=== PATIENT | female | born 1985 | race Caucasian/White ===

== ENCOUNTER 2023-10-06 17:45 | Inpatient (IN) | payer OTHER ==
[2023-10-06] MEDS ORDERED: lidocaine 1% 20 ML MDV ID PRN (18:38)
[2023-10-06] MEDS ORDERED: miSOPROStoL 200 MCG TABLET BC PRN (18:38)
[2023-10-06] MEDS ORDERED: CARBOPROST TROMETHAMINE 250 MCG/ML AMP IM PRN (18:38)
[2023-10-06] MEDS ORDERED: TRANEXAMIC ACID IN NACL 1,000 MG/100 ML BAG IV PRN (18:38)
[2023-10-06] MEDS ORDERED: hydrALAZINE INJ 20 MG/ML VIAL IVP PRN ×2 (18:38)
[2023-10-06] MEDS ORDERED: OXYTOCIN/SODIUM CHLORIDE 500 ML IV PRN (18:38)
[2023-10-06] MEDS ORDERED: LABETALOL 20 MG/4 ML SYRINGE IVP PRN ×3 (18:38)
[2023-10-06] MEDS ORDERED: METHYLERGONOVINE 0.2 MG/ML VIAL IM PRN (18:38)
[2023-10-06] MEDS ORDERED: miSOPROStoL 200 MCG TABLET PR PRN (18:38)
[2023-10-06] MEDS ORDERED: OXYTOCIN 10 UNIT/ML VIAL IM PRN (18:38)
[2023-10-06] MEDS ORDERED: LACTATED RINGERS 1,000 ML IV PRN (18:38)
[2023-10-06] MEDS ORDERED: NIFEdipine 10 MG CAPSULE PO PRN (18:38)
[2023-10-06] MEDS ORDERED: TERBUTALINE 1 MG/ML VIAL SUBQ PRN (18:38)
--- NOTE | 2023-10-06 18:48 | HISTORY & PHYSICAL EXAMINATION ---
Admit History - : 2 Parity: 1 Care: positive: Other ([facility]) Risk/History: positive: Other (Previous child with congenital hypothyroidism) Complications This : positive: Gestational diabetes Smoking Status: Never smoker - Mother's Labs Mother's Blood Type: positive: Unknown Mother's RH: positive: Unknown GBS: positive: Group B Step Negative Rubella Status: positive: Immune - Other Maternal History Other Maternal History: HPI: Patient is a. 37-year-old -0-0-1 at 39 weeks gestation LMP consistent with 10-week ultrasound she has good movement. Denies loss of fluid. No PAT/BV or RUQP. No vaginal bleeding. Denies nausea and vomiting. Denies urinary urgency or dysuria. She was scheduled for induction of labor secondary to A1 GDM at [facility], but due to unforeseen circumstances, needed to deliver at a different hospital. We graciously except this patient from [facility]. All other symptoms reviewed and were negative except per HPI. Course History of child with congenital hypothyroidism Two-vessel cord A1 GDM: Growth ultrasound at 33 weeks showed EFW in the 41st percentile. 2070 g. Oral HSV: On prophylactic acyclovir History of herniated lumbar disc. Initial H/H: 12.0/35%. Plt: 367 Rubella: Immune Varicella: Immune HBsAg: Nonreactive Hep C: Negative RPR/AB-EIA: Nonreactive HIV: Negative HSV Screen: Oral HSV, on prophylaxis Genetic testing: Negative Anatomy Scan: Two-vessel cord. Normal anatomy. Placenta posterior 50 gm OGCT: 158 GBS: Negative PMH A1 GDM HSV 1 Two-vessel cord Advanced maternal age Obesity with prepregnancy BMI of 30. Previous child with congenital hypothyroidism Herniated lumbar disc History of LEEP History of drug abuse. PSH Carpal tunnel surgery Risk factor repair History of LEEP Was needed traction OB History -0-0-1 1. 07/05/2006: 39 weeks, female, , [place], polyhydramnios, epidural, congenital hypothyroidism SH Denies tobacco, alcohol or drugs. Former smoker, quit 17 years ago did vape until she learned she was . Significant other and roommates vape. Did drink, sometimes heavily prior to . Does have a remote use of opioid use disorder, but no use for 19 years Family History Grandmother: Breast cancer Mother: Family history Grandmother: Brain tumor Father: Heart disease Grandfather: Prostate cancer Allergies No known drug allergies Medications Renal vitamins Acyclovir Physical exam: General: Alert, oriented, no acute distress Head: Normal cephalic atraumatic Eyes: PERRLA, extraocular motions intact. Respiratory: Normal rate of respiration. No accessory muscle use, normal respiratory effort. Cardiovascular: Regular rate and rhythm Abdomen: Gravid, nontender, nondistended Extremities: Normal range of motion Neuro: Oriented x3. Normal movements Psych: Appropriate mood and affect. Normal judgment and insight SVE: Fingertip, 85%, -1 in clinic yesterday FHT: 125 beats per baseline, moderate bili, accelerations present, no decelerations. Flippin: Quiescent Plan 37-year-old -0-0-1 at 39 weeks 0 days gestation by LMP consistent with 10- week ultrasound admitted for cervical ripening 1. Cervical ripening -Cervix unfavorable. Will begin cervical ripening with buccal misoprostol, 25 mcg every 4 hours -Plan for admission labs -After cervical ripening, will consider admission if cervix is favorable. Anticipate amniotomy 2. 39 weeks gestation 3. A1 GDM -Every 4 hour glucose checks 4. History of drug abuse -Will start with urine drug screen. No use for 19 years. 5. Advanced maternal age 6. Obesity class I with prepregnancy BMI of 30 7. Oral HSV -On prophylaxis 8. History of child with congenital hypothyroidism Meds/Allgy - Home Medications Home Medications: Ambulatory Orders Medication Instructions Recorded Confirmed Pnv No.95/Ferrous Fum/Folic AC 1 each PO 10/06/23 [ Tablet] - Allergies Allergies/Adverse Reactions: Allergies Allergy/AdvReac Type Severity Reaction Status Date / Time No Known Drug Allergies Allergy Verified 09/28/23 11:28 Plan for Labor - Plan For Labor I expect patient to be DC'd or transferred within 96 hours.: Yes
[2023-10-06 19:00] LABS: ALBUMIN 3.3 g/dL (3.2-5.5); ALBUMIN/GLOBULIN RATIO 1.1 (1.0-2.2); BILIRUBIN,TOTAL 0.3 mg/dL (0.2-1.0); CALCIUM 9.1 mg/dL (8.5-10.3); CREATININE 0.5 mg/dL (0.6-1.3); POTASSIUM 3.4 mmol/L (3.5-4.5); TOTAL PROTEIN 6.3 g/dL (6.4-8.9)
[2023-10-06 19:05] LABS: BASOPHILS % (AUTO) 0.3 %; EOSINOPHILS # (AUTO) 0.1 10^3/uL (0.0-0.7); EOSINOPHILS % (AUTO) 0.7 %; HCT - HEMATOCRIT 37.3 % (37.0-47.0); HGB - HEMOGLOBIN 12.6 g/dL (12.0-16.0); LYMPHOCYTES # (AUTO) 2.4 10^3/uL (1.5-3.5); LYMPHOCYTES % (AUTO) 20.8 %; MEAN CORPUSCULAR HGB CONC 33.8 g/dL (32.0-36.0); MEAN CORPUSCULAR VOLUME 91.6 fL (81.0-99.0); MEAN PLATELET VOLUME 12.2 fL (7.9-10.8); MONOCYTES # (AUTO) 0.7 10^3/uL (0.0-1.0); MONOCYTES % (AUTO) 6.3 %; NEUTROPHILS # (AUTO) 8.2 10^3/uL (1.5-6.6); NEUTROPHILS % (AUTO) 70.8 %; PLT - PLATELET COUNT 218 10^3/uL (130-450); RED BLOOD COUNT 4.07 10^6/uL (4.20-5.40); RED CELL DISTRIBUTION WIDTH 13.2 % (12.0-15.0); WHITE BLOOD COUNT 11.7 x10^3/uL (4.8-10.8)
[2023-10-06] MEDS: miSOPROStoL 100 MCG TABLET BC SCH (20:15)
[2023-10-06] MEDS: ACYCLOVIR 200 MG CAPSULE PO SCH (23:33)
[2023-10-07] MEDS: SODIUM CHLORIDE FLUSH 0.9% 10 ML SYRINGE IVP PRN (00:27)
[2023-10-07] MEDS: SODIUM CHLORIDE FLUSH 0.9% 10 ML SYRINGE IVP SCH (12:45)
--- NOTE | 2023-10-07 15:44 | PROVIDER PROGRESS NOTE ---
Labor Progress Note - Uterine Monitoring : q 5-7 min Contraction Intensity: positive: Mild to moderate Uterine Resting Tone: positive: Soft - Monitoring Monitor Mode: positive: External ultrasound Heart Rate Variability: positive: Moderate (6-25 bmp) Accelerations: positive: Present, 15x15 Decelerations: positive: None Strip Review: positive: Category I - Vaginal Exam Dilation (in cm): 0 Effacement (%): 80 Station: -3 Cervical Position: Posterior - Labor Progress Note Labor Progress Note/Additional Text: s/p miso x 3. marcela alot but not in labor, no cervical change. I can not get my finger thru her cervix. continue miso for now. maybe cervical scarring from her LEEP.
--- NOTE | 2023-10-07 17:45 | PROVIDER PROGRESS NOTE ---
Labor Progress Note - Uterine Monitoring Contraction Frequency (min/apart): q2.5 to 6 min Contraction Intensity: positive: Mild to moderate Uterine Resting Tone: positive: Soft - Monitoring Monitor Mode: positive: External ultrasound Heart Rate Variability: positive: Moderate (6-25 bmp) Accelerations: positive: Present, 15x15 Decelerations: positive: None Strip Review: positive: Category I - Vaginal Exam Dilation (in cm): 1 Effacement (%): 80 Cervical Position: Midposition (gettin more uncomfortable with the contractions. maybe wanting epidural soon. I still can not get my finger fully thru her cer vix. tried. a balloon or pitocin woudl be good. both discussed. will start with oxytocin for now. I realy think her contractions are too painful and frequent for miso.)
[2023-10-07] MEDS: OXYTOCIN/SODIUM CHLORIDE 500 ML IV SCH (21:30)
[2023-10-07] MEDS: LACTATED RINGERS 1,000 ML IV SCH (21:30)
[2023-10-08] MEDS: fentaNYL 100 MCG/2 ML VIAL IVP PRN (09:07)
--- NOTE | 2023-10-08 11:54 | PHARMACY PROGRESS NOTE ---
- Best Possible Medication History Admit Date and Time: 10/07/23 1828 Processed by: Pharmacy Medication History completed: Yes Patient Interview: Pt unable to participate Secondary Source(s): Insurance records As the person ultimately responsible for medication therapy, providers are able to order a medication from an existing home medication list in [facility] via the "Reconcile Routine" prior to Confirmation of that medication by academic support center director. Such practice is discouraged except when the physician, in their clinical judgment, deems that a medical need exists for a medication without regard to previous use.
--- NOTE | 2023-10-08 20:17 | PROVIDER PROGRESS NOTE ---
Labor Progress Note - Uterine Monitoring Uterine Monitoring Mode: positive: External toco Contraction Frequency (min/apart): still irregular q 2-5 Contraction Intensity: positive: Mild to moderate Uterine Resting Tone: positive: Soft - Monitoring Monitor Mode: positive: External ultrasound Heart Rate Variability: positive: Moderate (6-25 bmp) Accelerations: positive: Present, 15x15 Decelerations: positive: None Strip Review: positive: Category I - Vaginal Exam Dilation (in cm): 1 Effacement (%): 80 Station: -3 Cervical Position: Anterior - Labor Progress Note Labor Progress Note/Additional Text: cervical catheter placed and filled 60 in uterine balloon, 40 in vaginal balloon. fentanyl 50 mcg given prior to insertion to help her tolerate. pitocin at 10. I held catheter in place with inflation. continue pitocin and catheter today. recheck around 9 pm.
--- NOTE | 2023-10-08 20:45 | ANESTHESIA ---
Pre-Anesthesia VS, & Labs - Diagnosis Active labor - Procedure vaginal delivery Vital Signs: Temp Pulse Resp BP Pulse Ox O2 Flow Rate 36.8 C 88 16 134/86 H 10/06/23 18:00 10/06/23 18:00 10/06/23 18:00 10/06/23 18:00 Height: 5 ft 2 in Weight (kg): 92.079 kg Body Mass Index: 37.1 BMI Classification: Obese - NPO Other (clear liquids during labor) - Is Patient ?: Yes - Lab Results Current Lab Results: Laboratory Tests 10/08/23 17:41: POC Whole Bld Glucose 81 10/08/23 11:09: POC Whole Bld Glucose 88 10/08/23 06:45: POC Whole Bld Glucose 123 H 10/08/23 02:57: POC Whole Bld Glucose 93 10/07/23 22:39: POC Whole Bld Glucose 113 H 10/07/23 18:23: POC Whole Bld Glucose 124 H 10/07/23 13:56: POC Whole Bld Glucose 113 H 10/07/23 10:15: POC Whole Bld Glucose 86 10/07/23 06:24: POC Whole Bld Glucose 104 H 10/07/23 02:18: POC Whole Bld Glucose 139 H 10/06/23 19:15: Blood Type Recheck O POSITIVE 10/06/23 18:15: WBC 11.7 H, RBC 4.07 L, Hgb 12.6, Hct 37.3, MCV 91.6, MCH 31.0, MCHC 33.8, RDW 13.2, Plt Count 218, MPV 12.2 H, Neut # (Auto) 8.2 H, Lymph # (Auto) 2.4, [place] # (Auto) 0.7, Eos # (Auto) 0.1, Baso # (Auto) 0.0, Absolute Nucleated RBC 0.00, Nucleated RBC % 0.0 10/06/23 18:15: Blood Type O POSITIVE, Antibody Screen NEGATIVE 10/06/23 18:15: Sodium 132 L, Potassium 3.4 L, Chloride 103, Carbon Dioxide 21, Anion Gap 8.0, BUN 10, Creatinine 0.5 L, Estimated GFR (MDRD) 140, Glucose 128 H , Calcium 9.1, Total Bilirubin 0.3, AST 16, ALT 13, Alkaline Phosphatase 130 H, Total Protein 6.3 L, Albumin 3.3, Globulin 3.0, Albumin/Globulin Ratio 1.1 Lab results reviewed: Yes Fish Bones: 10/06/23 18:15 10/06/23 18:15 Home Medications and Allergies Home Medications: Ambulatory Orders Pnv No.95/Ferrous Fum/Folic AC [ Tablet] 1 each PO DAILY 10/06/23 Acyclovir 800 mg PO BID 10/08/23 Active Medications Acyclovir (Acyclovir 200 Mg Capsule) 400 mg PO TID [facility] Last Admin: 10/08/23 15:35 Dose: 400 mg Carboprost Tromethamine (Carboprost Tromethamine 250 Mcg/Ml Amp) 250 mcg IM .ONCE PRN PRN Reason: Hemorrhage Fentanyl (Fentanyl 100 Mcg/2 Ml Vial) 50 mcg IVP Q1H PRN PRN Reason: Severe Pain (score 7-10) Last Admin: 10/08/23 09:07 Dose: 50 mcg Hydralazine HCl (Hydralazine Inj 20 Mg/Ml Vial) 10 mg IVP .ONCE PRN; Protocol PRN Reason: SBP> or= 160 OR DBP> or= 110 Hydralazine HCl (Hydralazine Inj 20 Mg/Ml Vial) 5 - 10 mg IVP Q20M PRN; Protocol PRN Reason: SBP> or= 160 OR DBP> or= 110 Oxytocin/Sodium Chloride (Pitocin/Sodium Chloride) 500 mls @ 999 mls/hr IV PRN PRN; Protocol PRN Reason: POST- HEMORR PREVENTION Tranexamic Acid (Tranexamic 1,000 Mg/100ml-Nacl) 1,000 mg in 100 mls @ 600 mls/hr IV Q30M PRN PRN Reason: EBL >1200mL and within 3hr Lactated Ringer's (Lr) 1,000 mls @ 125 mls/hr IV .Q8H [facility] Last Infusion: 10/08/23 08:49 Dose: 50 mls/hr Lactated Ringer's (Lr) 1,000 mls @ 999 mls/hr IV PRN PRN PRN Reason: PER PHYSICIAN ORDER Oxytocin/Sodium Chloride (Pitocin/Sodium Chloride) 500 mls @ 1 mls/hr IV TITR [facility]; Protocol Last Titration: 10/08/23 08:14 Dose: 10 milliunit/min, 10 mls/hr Labetalol HCl (Labetalol 20 Mg/4 Ml Syringe) 20 mg IVP .ONCE PRN; Protocol PRN Reason: SBP> or= 160 OR DBP> or= 110 Labetalol HCl (Labetalol 20 Mg/4 Ml Syringe) 20 - 80 mg IVP Q10M PRN; Protocol PRN Reason: SBP> or= 160 OR DBP> or= 110 Labetalol HCl (Labetalol 20 Mg/4 Ml Syringe) 20 - 40 mg IVP Q10M PRN; Protocol PRN Reason: SBP> or= 160 OR DBP> or= 110 Lidocaine HCl (Lidocaine 1% 20 Ml Mdv) 20 ml ID .ONCE PRN PRN Reason: PERINEAL REPAIR Stop: 10/09/23 18:38 Methylergonovine Maleate (Methylergonovine 0.2 Mg/Ml Vial) 0.2 mg IM .ONCE PRN PRN Reason: Hemorrhage Misoprostol (Misoprostol 200 Mcg Tablet) 600 mcg BC .ONCE PRN PRN Reason: Hemorrhage Misoprostol (Misoprostol 200 Mcg Tablet) 800 mcg [place] .ONCE PRN PRN Reason: Hemorrhage Misoprostol (Misoprostol 100 Mcg Tablet) 25 mcg BC Q4H [facility] Last Admin: 10/07/23 12:45 Dose: 25 mcg Nifedipine (Nifedipine 10 Mg Capsule) 10 - 20 mg PO Q20M PRN; Protocol PRN Reason: SBP> or= 160 OR DBP> or= 110 Oxytocin (Oxytocin 10 Unit/Ml Vial) 10 unit IM .ONCE PRN PRN Reason: Step One if no IV access. Multivit/Folic Acid/Iron ( Vitamin Tablet) 1 tab PO DAILYWM [facility] Sodium Chloride (Sodium Chloride Flush 0.9% 10 Ml Syringe) 10 ml IVP Q8H [facility] Last Admin: 10/07/23 12:45 Dose: 10 ml Sodium Chloride (Sodium Chloride Flush 0.9% 10 Ml Syringe) 10 ml IVP PRN PRN PRN Reason: NEEDED PER PROVIDER ORDERS Last Admin: 10/07/23 06:45 Dose: 10 ml Terbutaline Sulfate (Terbutaline 1 Mg/Ml Vial) 0.25 mg SUBQ .ONCE PRN PRN Reason: Tachystole Pnv No.95/Ferrous Fum/Folic AC [ Tablet] 1 each PO DAILY 10/06/23 Acyclovir 800 mg PO BID 10/08/23 Allergies/Adverse Reactions: Allergies Allergy/AdvReac Type Severity Reaction Status Date / Time No Known Drug Allergies Allergy Verified 09/28/23 11:28 Anes History & Medical History - Anesthetic History Anesthesia Complications: reports: No previous complications - Medical History Cardiovascular: reports: None Pulmonary: reports: None Gastrointestinal: reports: None Urinary: reports: None Neuro: reports: None Musculoskeletal: reports: None Endocrine/Autoimmune: reports: Other (Gestational diabetes) Blood Disorders: reports: None Skin: reports: None Smoking Status: Former smoker Psychosocial: reports: No issues indicated History of Cancer?: No - Surgical History Gynecologic: reports: LEEP (Cervical surgery) Orthopedic: reports: Carpal Tunnel surgery - Obstetrical History : 2 Parity: 1 Events: reports: Other (Previous child with congenital hypothyroidism) Complications: reports: Gestational diabetes Exam General: Alert, Oriented x3, Cooperative, No acute distress Dental: WNL Mouth Openin Fingerbreadth Neck Mobility: Normal Mallampati classification: II Thyromental Distance: 4-6 cm Mental/Cognitive Status: Alert/Oriented X3, Normal for patient Plan Anesthesia Type: Epidural Consent for Procedure(s) Verified and Reviewed: Yes Code Status: Attempt Resuscitation ASA classification: 2-Mild systemic disease Is this case an emergency?: No
--- NOTE | 2023-10-08 21:53 | PROVIDER PROGRESS NOTE ---
Labor Progress Note - Uterine Monitoring Uterine Monitoring Mode: positive: External toco Contraction Frequency (min/apart): q4-6 : pitocin at 10 Contraction Intensity: positive: Mild to moderate Uterine Resting Tone: positive: Soft - Monitoring Monitor Mode: positive: External ultrasound Heart Rate Variability: positive: Moderate (6-25 bmp) Accelerations: positive: Present, 15x15 Decelerations: positive: None - Vaginal Exam Dilation (in cm): 4 Effacement (%): 50 Station: Ballotable Cervical Position: Anterior - Labor Progress Note Labor Progress Note/Additional Text: woke up from a sleep and was shaking and shivering. no fever. cervix checked and did not feel fever in her vagina. catheter removed as 12 hours. 4/50/high. seems a band of scar tissue that I broke open getting this out. will have her sit up on the ball for a bit. will go up on pitocin. checked back wiht her after 30 min and feels totally back to normal. shaking episode lasted about 5 minutes. baby is category 1. looks great.
[2023-10-09] MEDS ORDERED: PHENYLEPHRINE HCL 0.5 MG/5 ML AMPULE ONE ×2 (10:24→11:16)
[2023-10-09] MEDS ORDERED: OXYTOCIN 10 UNIT/ML VIAL ONE (10:24)
[2023-10-09] MEDS ORDERED: MORPHINE PF 5 MG/10 ML VIAL ONE (10:25)
[2023-10-09] MEDS ORDERED: fentaNYL 100 MCG/2 ML VIAL ONE (10:25)
[2023-10-09] MEDS ORDERED: ceFAZolin (2G) 2 GM in SODIUM CHLORIDE 0.9% MINIBAG 100 ML IV ONE (10:26)
[2023-10-09] MEDS ORDERED: ACETAMINOPHEN 500 MG TABLET PO ONE (10:26)
[2023-10-09] MEDS ORDERED: CITRIC ACID/SODIUM CITRATE 15 ML UDC PO ONE (10:26)
[2023-10-09] MEDS ORDERED: miSOPROStoL 200 MCG TABLET ONE (10:27)
[2023-10-09] MEDS ORDERED: CARBOPROST TROMETHAMINE 250 MCG/ML AMP IM ONE (10:28)
[2023-10-09] MEDS ORDERED: METHYLERGONOVINE 0.2 MG/ML VIAL ONE (10:28)
[2023-10-09] MEDS ORDERED: SODIUM CHLORIDE 0.9% 10 ML VIAL IVP ONE (10:28)
[2023-10-09] MEDS ORDERED: ceFAZolin 2 GM VIAL ONE (10:30)
--- NOTE | 2023-10-09 10:32 | HISTORY & PHYSICAL EXAMINATION ---
HPI - Admitted From Admitted from: OB - History Obtained From History obtained from: Patient Exam limitations: No limitations - History of Present Illness HPI Comment/Other: Patient for labor induction 37 yo with GDM diet controlled and 2 vessel cord. 39w 2d now. DILLAN 10/13/23 by 10 week US = LMP. s/p miso x 5, pitocin overnight. pitocin with balloon x 12 hrs and then pitocin up to 20. 3 cm and not in labor. seems like a large baby, maybe 10 pounds with a lot of fluid. options discussed. going home is a possiblity. baby has always looked great. a bit of a worry that she is 3 cm and feels to have a lot of fluid and worry about cord prolapse. another option, restart miso or pitocin. Or proceed with c section. After much discussion, and looking at her belly in standing up, I recommend c section as I think this baby is quite large. She and Cullen agree. procedure, risks discussed. She has signed the consent form. Team is called in. Will proceed when everyone is ready. PMH/PSH - Past Medical History Cardiovascular: positive: None Respiratory: positive: None Neuro: positive: None Endocrine/Autoimmune: positive: Other (Gestational diabetes) GI: positive: None : positive: None Musculoskeletal: positive: None Derm: positive: None - Past Surgical History Ortho: positive: Carpal Tunnel surgery /CARBONATOR: positive: LEEP (Cervical surgery) Social & Family Hx - Social History Does the pt smoke?: No Smoking Status: Former smoker Does the pt drink ETOH?: Yes Does the pt have substance abuse?: No Meds/Allgy - Home Medications Home Medications: Ambulatory Orders Medication Instructions Recorded Confirmed Pnv No.95/Ferrous Fum/Folic AC 1 each PO DAILY 10/06/23 10/08/23 [ Tablet] Acyclovir 800 mg PO BID 10/08/23 10/08/23 - Allergies Allergies/Adverse Reactions: Allergies Allergy/AdvReac Type Severity Reaction Status Date / Time No Known Drug Allergies Allergy Verified 09/28/23 11:28 Exam - Physical Exam Comments/Other: cervix 3/70/-3, still not well engaged. abdomen large c/w large amount of fluid and large baby, efw 10 pounds. Results - Lab Results Fish Bones: 10/06/23 18:15 10/06/23 18:15 Other Lab Results: Lab Results x24hrs 10/09/23 10/09/23 10/08/23 Range/Units 06:16 02:34 21:43 POC Whole Bld Glucose 87 122 H 101 H (70 - 100) mg/dL 10/08/23 10/08/23 Range/Units 17:41 11:09 POC Whole Bld Glucose 81 88 (70 - 100) mg/dL Impression/Plan - Problem List Problem List: term
[2023-10-09] MEDS ORDERED: OXYTOCIN/SODIUM CHLORIDE 500 ML IV ONE (10:34)
[2023-10-09] MEDS ORDERED: MORPHINE PF 5 MG/10 ML VIAL IT ONE (10:59)
[2023-10-09] MEDS ORDERED: fentaNYL 100 MCG/2 ML VIAL IT ONE (10:59)
[2023-10-09] MEDS ORDERED: LACTATED RINGERS 1,000 ML IV SCH ×3 (11:00→13:00)
[2023-10-09] MEDS: LACTATED RINGERS 1,000 ML IV ONE ×2 (11:50→12:06)
[2023-10-09] MEDS ORDERED: KETOROLAC 30 MG/ML VIAL ONE (11:51)
[2023-10-09] MEDS ORDERED: ONDANSETRON 4 MG/2 ML VIAL ONE (11:51)
[2023-10-09] MEDS ORDERED: hydrALAZINE INJ 20 MG/ML VIAL IVP PRN ×2 (11:56)
[2023-10-09] MEDS ORDERED: LABETALOL 20 MG/4 ML SYRINGE IVP PRN ×3 (11:56)
[2023-10-09] MEDS ORDERED: NIFEdipine 10 MG CAPSULE PO PRN (11:56)
[2023-10-09] MEDS ORDERED: OXYTOCIN/SODIUM CHLORIDE 500 ML IV PRN (11:56)
[2023-10-09] MEDS ORDERED: NALOXONE 0.4 MG/ML VIAL IVP PRN ×3 (11:56→12:34)
[2023-10-09] MEDS ORDERED: diphenhydrAMINE 25 MG CAPSULE PO PRN (11:57)
[2023-10-09] MEDS ORDERED: ONDANSETRON 4 MG/2 ML VIAL IVP PRN ×2 (12:19→12:34)
[2023-10-09] MEDS ORDERED: HYDROmorphone 0.5 MG/0.5 ML SYRINGE IVP PRN (12:19)
[2023-10-09] MEDS ORDERED: ATROPINE ABBOJECT 1 MG/10 ML SYRINGE IVP PRN (12:19)
[2023-10-09] MEDS ORDERED: MORPHINE 2 MG/ML CARPUJECT IVP PRN (12:19)
[2023-10-09] MEDS ORDERED: fentaNYL 100 MCG/2 ML VIAL IVP PRN (12:19)
[2023-10-09] MEDS ORDERED: NALBUPHINE 10 MG/ML AMP IVP PRN (12:34)
[2023-10-09] MEDS ORDERED: diphenhydrAMINE INJ 50 MG/ML VIAL IVP PRN (12:34)
--- NOTE | 2023-10-09 12:39 | ANESTHESIA POST OP EVALUATION ---
Anesthesia Post Eval - Post Anesthesia Eval Vitals: Last Vital Signs Temp 36.1 C L 10/09/23 12:30 Pulse 67 10/09/23 12:30 Resp 19 10/09/23 12:30 BP 98/63 10/09/23 12:30 Pulse Ox 100 10/09/23 12:30 O2 Flow Rate CV Function Including HR & BP: Stable Pain Control: Satisfactory Nausea & Vomiting: Negative Mental Status: Baseline Respiratory Status: Airway Patent Hydration Status: Satisfactory Anesthesia Complications: None
--- NOTE | 2023-10-09 13:50 | OPERATIVE REPORT ---
Operative Report - General Admit Date: 10/07/23 Procedure Date: 10/09/23 Planned Procedure: primary low transverse c section Pre-Op Diagnosis: failed induction, 2 vessel cord, AMA, LGA baby Procedure Performed: primary low transverse c section Post Op Diagnosis: failed induction, 2 vessel cord with true know - Procedure Note Primary Surgeon: Riri Holbrook MD Secondary Surgeon: KIMMY Emerson Anesthesia Provider: Nohemi Arenas CRNA Anesthesia Technique: Spinal Pathology: none IV Fluids (mL): 800 Estimated Blood Loss (mL): 100 Urine Output (mL): 300 Drain/Tube Type: Other (linares catheter) Indications: 37 yo wiht at 39w2d presented for induction 2 days ago. in spite of misoprostol, pitocin, catheter in cervix, and more pitocin, baby's head was not low enough to break water and she just did not go into labor. Baby felt to be large but it was hard to tell. Seemed there was a lot of fluid. r ecommended c section and she agreed. consents signed. Findings: Live male infant named Augustin. Apgars 8/9. Weight 7lb14 oz. Baby was not engaged. uterus, tubes and ovaries appeared normal. Complications: none - Other Other Information/Narrative: patient was brought to OR and prepped and draped in normal fashion, including vaginal prep. 2 grams of Ancef given. SCDs on. Time out done. anesthesia tested and was adequate. Knife used to make pfanensteil incision and carry down to fascia. The fascia was transected bilaterally. Edges grasped with Kochers and elevated inferiorly then superiorly and the rectus muscles were discected off. Split in midline and peritoneum entered sharply. Baron retractor placed and rolled down. Low Transverse uterine incsion made with the knife. Uterine incsion extended. Baby's head was easily guided out of incision and rest of baby was delivered. Shown to parents. cord was clamped and cut at 1 minute. Baby handed off to Dr. Jesse houston. Placenta delivered with gentle tractions. uterus cleared of clots. Grasped with [place] clamps. Closed with running locked ) Monocryl suture. A second horizontal imbricating laayter was placed. Muscle layers were examined for bleeders. A mattress type stitch was placed with 0 Vicryl to hold facia together. Fascia was then closed with running 0 Vicryl. Subq was closed with 3-0 Vicryl and skin was closed with 4-0 MOnocryl in subcuticalar fashion. bandage placed. uterus expressed and pateint was brought to [facility] room 5 for recovery and the rest of her stay.
[2023-10-09] MEDS: KETOROLAC 30 MG/ML VIAL IVP SCH (18:58)
[2023-10-09] MEDS: oxyCODONE 5 MG TABLET PO PRN (18:59)
[2023-10-09] MEDS: ACETAMINOPHEN 500 MG TABLET PO SCH (18:59)
[2023-10-09] MEDS: DOCUSATE SODIUM 100 MG CAPSULE PO SCH (21:42)
[2023-10-09] MEDS: ENOXAPARIN 40 MG/0.4 ML SYRINGE SUBQ SCH (23:37)
[2023-10-10] MEDS ORDERED: KETOROLAC 30 MG/ML VIAL ONE (01:06)
[2023-10-10] MEDS: IBUPROFEN 600 MG TABLET PO SCH (07:10)
--- NOTE | 2023-10-10 10:41 | PROVIDER PROGRESS NOTE ---
Subjective - General Admit Date: 10/07/23 Procedure Date: 10/09/23 Post Op Days: 1 Procedure Performed: c section - Review of Systems Wound/Incisions: positive: Other (bandage still on. will remove later today) Drain Type: n/a General: positive: No symptoms - Other Other Information/Narrative: POD 1 after c section for failed induction. doing great. bonding well with baby. partner is very supportive. breast feeding. will get up and shower today. discharge tomorrow. Objective - Patient Data Vital Signs: Vital Signs x48h Temp Pulse Resp BP Pulse Ox 10/10/23 03:50 97.9 F 78 16 105/64 96 Weight: Weight 10/08/23 10/09/23 10/10/23 23:59 23:59 23:59 Weight (kg) 92.079 kg Intake & Output: Intake and Output Totals x24h 10/08/23 10/09/23 10/10/23 23:59 23:59 23:59 Intake Total 2221.767 1272.733 300 Output Total 1825 1100 Balance 2221.767 -552.267 -800 - Lab Results Lab Results: 10/06/23 18:15 10/06/23 18:15 - Current Medications Current Medications: Current Medications Generic Name Dose Route Start Last Admin Trade Name Luz PRN Reason Stop Dose Admin Acetaminophen 1,000 mg 10/09/23 12:00 10/10/23 03:06 Acetaminophen 500 Mg Tablet PO 1,000 mg Q8H CYNTHIA Administration Acyclovir 400 mg 10/06/23 22:00 10/10/23 08:08 Acyclovir 200 Mg Capsule PO 400 mg TID CYNTHIA Administration Docusate Sodium 200 mg 10/09/23 21:00 10/10/23 08:08 Docusate Sodium 100 Mg Capsule PO 200 mg BID CYNTHIA Administration Enoxaparin Sodium 40 mg 10/09/23 23:30 10/10/23 08:08 Enoxaparin 40 Mg/0.4 Ml Syringe SUBQ 40 mg DAILY CYNTHIA Administration Ibuprofen 600 mg 10/10/23 07:00 10/10/23 07:10 Ibuprofen 600 Mg Tablet PO 600 mg Q6HR CYNTHIA Administration Oxycodone HCl 5 - 10 mg 10/09/23 11:56 10/09/23 18:59 Oxycodone 5 Mg Tablet PO 5 mg Q4HR PRN Administration Severe Pain 6 -10 Sodium Chloride 10 ml 10/06/23 19:00 10/10/23 01:09 Sodium Chloride Flush 0.9% 10 Ml Syringe IVP 10 ml Q8H CYNTHIA Administration
[2023-10-10] MEDS: HYDROCORTISONE 1% CREAM 28 GM TUBE TOP SCH (23:04)
--- NOTE | 2023-10-11 08:27 | PROVIDER PROGRESS NOTE ---
Subjective - General Admit Date: 10/07/23 Procedure Date: 10/09/23 Post Op Days: 2 Procedure Performed: c section - Review of Systems Wound/Incisions: positive: Other (Incision clean, dry, intact) Drain Type: n/a General: positive: No symptoms - Other Other Information/Narrative: Subjective Patient reports she is doing well. Lochia appropriate. Denies heavy bleeding. Ambulating. Pelvic and abdominal pain well-controlled. Tolerating oral intake. Diet: Regular. Voiding without difficulty. Passing flatus. Denies BM. Patient is bonding with baby in room Breast feeding going well. Denies feeling lightheaded, dizzy or excessively fatigued. Patient tired from hourly feeds. Objective General: Alert, oriented, no apparent distress. Cardiovascular: Regular rate. Regular rhythm. Lungs: No increased work of breathing. Abdomen: Uterus firm. Below umbilicus. No guarding or rebound. Extremities: No pain on palpation. No cords palpated. Distal pulses intact. Incision: Clean, dry, and intact. Assessment and Plan day 2. -Routine care -Anticipate discharge tomorrow HIstory of PPD -Discussed sertraline. Will consider today. -Encouraged to take a nap while considering supplementing. -Will keep a close eye on mood. Can consider discharge later today if doing better, but feeding/modd concerns. Objective - Patient Data Vital Signs: Vital Signs x48h Temp Pulse Resp BP Pulse Ox 10/11/23 04:00 97.7 F 77 20 133/80 H 96 Intake & Output: Intake and Output Totals x24h 10/09/23 10/10/23 10/11/23 23:59 23:59 23:59 Intake Total 1272.733 300 Output Total 1825 1100 Balance -552.267 -800 - Lab Results Lab Results: 10/06/23 18:15 10/06/23 18:15 - Current Medications Current Medications: Current Medications Generic Name Dose Route Start Last Admin Trade Name Lionq PRN Reason Stop Dose Admin Acetaminophen 1,000 mg 10/09/23 12:00 10/11/23 03:57 Acetaminophen 500 Mg Tablet PO 1,000 mg Q8H CYNTHIA Administration Acyclovir 400 mg 10/06/23 22:00 10/10/23 23:04 Acyclovir 200 Mg Capsule PO 400 mg TID CYNTHIA Administration Docusate Sodium 200 mg 10/09/23 21:00 10/10/23 21:12 Docusate Sodium 100 Mg Capsule PO 200 mg BID CYNTHIA Administration Enoxaparin Sodium 40 mg 10/09/23 23:30 10/10/23 08:08 Enoxaparin 40 Mg/0.4 Ml Syringe SUBQ 40 mg DAILY CYNTHIA Administration Hydrocortisone 1 applic 10/10/23 22:00 10/10/23 23:04 Hydrocortisone 1% Cream 28 Gm Tube TOP 1 oz BID CYNTHIA Administration Ibuprofen 600 mg 10/10/23 07:00 10/11/23 03:12 Ibuprofen 600 Mg Tablet PO 600 mg Q6HR CYNTHIA Administration Oxycodone HCl 5 - 10 mg 10/09/23 11:56 10/09/23 18:59 Oxycodone 5 Mg Tablet PO 5 mg Q4HR PRN Administration Severe Pain 6 -10 Sodium Chloride 10 ml 10/06/23 19:00 10/10/23 01:09 Sodium Chloride Flush 0.9% 10 Ml Syringe IVP 10 ml Q8H CYNTHIA Administration
[2023-10-11] MEDS: PRENATAL VITAMIN TABLET PO SCH (11:52)
--- NOTE | 2023-10-11 15:53 | Discharge Plan ---
Discharge Plan Problem Reviewed?: Yes Disposition: Home, Self Care Condition: Good Diet: Regular Shower Restrictions: No Driving Restrictions: Yes (Until no longer having significant postop pain) Instruction Topics: Depression , C Section Dc No Smoking: If you smoke, Please STOP! Call for help. Follow-up with: Vladimir Muniz MD [Provider Admit Priv/Credential] -
--- NOTE | 2023-10-11 15:55 | DISCHARGE SUMMARY ---
"Discharge Summary Admit Date: 10/06/23 Discharge Date: 10/11/23 Discharging Provider: Vladimir Muniz MD Code Status: Attempt Resuscitation Condition at Discharge: Good Discharge Disposition: 01 Home, Self Care - DIAGNOSES Admission Diagnoses: 39 weeks gestation A1 gestational diabetes managed with diet and exercise Induction of labor Discharge Diagnoses with Status of Each Condition: 39 weeks gestation A1 gestational diabetes managed with diet and exercise Failed induction of labor Delivery of live inman Status post primary low-transverse section - HPI History of Present Illness: Patient doing better after nap, but still anxious. Had a long discussion about managing , swaddling, depression, and giving oneself space. Offered patient another night stay, but she felt she would be better when she got home in a normal environment. Counseled on depression, calling for any concerns. Should follow-up with her primary OB provider or [facility] women's care. - CONSULTS | PROCEDURES Procedures: Primary low-transverse section - HOSPITAL COURSE Hospital Course: Patient was admitted at 39 weeks gestation for induction of labor for A1 GDM. She had a long induction with misoprostol, cervical ripening balloon, oxytocin, and all were unsuccessful in achieving active labor. After several days of this process, she underwent a primary low-transverse section. Surgery was uncomplicated. course was relatively unremarkable, however on postpa rtum day 2, she was very tearful and struggled with lack of sleep. We discussed coping mechanisms, ways to get more sleep, but patient desired to go home. She was uncertain if she wanted to start antianxiety medication/SSRI, and agreed that I can send one to the pharmacy for her to flower buncher or picker if she felt this necessary. Offered close follow-up as she is increased risk of depression and will follow-up later this week with an office visit. - ALLERGIES Allergies/Adverse Reactions: Allergies Allergy/AdvReac Type Severity Reaction Status Date / Time No Known Drug Allergies Allergy Verified 09/28/23 11:28 - MEDICATIONS Home Medications: Ambulatory Orders Medication Instructions Recorded Confirmed Pnv No.95/Ferrous Fum/Folic AC 1 each PO DAILY 10/06/23 10/08/23 [ Tablet] Acyclovir 800 mg PO BID 10/08/23 10/08/23 Ibuprofen [Motrin] 600 mg PO Q6H PRN #30 tab 10/11/23 Sertraline [Zoloft] 100 mg PO DAILY #30 tablet 10/11/23 - LABS Result Diagrams: 10/06/23 18:15 10/06/23 18:15 - FOLLOW UP Follow Up: Within 1 week with [facility] women's care or primary OB provider. - TIME SPENT Time Spent in Discharge (Minutes): 45"
[2023-10-11 18:38] VITALS: BP 122/74; O2SAT 98
--- NOTE | 2023-10-11 19:19 | Labor Flowsheet ---
Labor Flowsheet Datetime Report Generated by CPN: 10/11/2023 19:19 Datetime: 10/10/2023 00:45 Membranes Ruptured Date/Time: 10/09/2023 11:19 Membranes Rupture Method: Artificial Amniotic Fluid Color: Clear Amniotic Fluid Amount: Large Amniotic Fluid Odor: Normal Datetime: 10/09/2023 09:02 UTERINE ACTIVITY Monitor Mode: External Frequency (min): 10-12 Quality: Strong Duration (sec): 160-180 Pattern: Normal: <= 5 Contractions in 10 Minutes Resting Tone (Palpate): Relaxed ASSESSMENT A Monitor Mode: Telemetry FHR Baseline Rate : 120 Variability: Moderate 6-25 bpm Accelerations: 15X15 Decelerations: None Category: Category I Datetime: 10/09/2023 08:45 COMMUNICATION Communication: Provider at Bedside Datetime: 10/09/2023 08:41 VITAL SIGNS NBP Sys/Mable/Mean (mmHg): 113 : 72 : 82 Pulse: 77 LaborFlag: Labor Datetime: 10/09/2023 08:02 Contraction Comments: unable to trace d/t patient position Datetime: 10/09/2023 07:48 I/O Interventions: Up to BR Datetime: 10/09/2023 07:24 Communication Comments: received report fro RN Luisa Sandro Datetime: 10/09/2023 06:22 Patient Care Comments: left lateral with peanut ball Datetime: 10/09/2023 03:20 MEDICATIONS Pitocin (milliunits): Discontinued Datetime: 10/09/2023 03:15 VAGINAL EXAM Dilatation (cm): 4.0 Effacement (%): 50 Station: -3 Exam by: Lilliana Jo Provider Notified (Name): Datetime: 10/08/2023 23:30 Pitocin Checklist: At Least 1 Acceleration of 15 bpm x 15 Seconds in 30 Minutes or Adequate Variabi lity; No More than 1 Late Deceleration Occurred in Past 30 Minutes; No More than 2 Variable Decelerat ions > 60 Seconds in Duration and decreasing >60 bpm in 30 minutes; No More than 5 Uterine Contractio ns in 10 Minutes for any 20 Minute Interval; Uterus Palpates Soft between Contractions Datetime: 10/08/2023 23:00 Monitor Interventions for UA: Parcoal Adjusted Datetime: 10/08/2023 18:31 Patient Position/Activity: Right Lateral Datetime: 10/08/2023 18:30 Comments: Unable to adequately assess due to positioning. Datetime: 10/08/2023 15:58 Comfort Measures: Breathing/Relaxation Datetime: 10/08/2023 13:00 Monitor Interventions for FHR: Ultrasound Adjusted Datetime: 10/08/2023 12:30 FHR Baseline Changes: No Baseline Change Datetime: 10/08/2023 09:30 Actions for Decelerations: Side to Side; Provider Notified Datetime: 10/08/2023 09:24 Cervical Ripening Agents: Torres Balloon; Cytotec @ Medication Comments: [id number] Datetime: 10/08/2023 08:49 PATIENT CARE IV/Blood Work: IV Started Datetime: 10/07/2023 18:26 Respirations: 16 SpO2 (%): 98 Temperature (C): 36.6 Temperature Route: Oral Datetime: 10/07/2023 18:23 Bedside Blood Glucose: 124 Datetime: 10/07/2023 14:58 Provider Reviewed Strip: No Notification Reason: Status Update Datetime: 10/07/2023 13:54 Pain Assessment Comments: Unchanged, patient able to sleep soundly Datetime: 10/07/2023 12:48 PAIN Pain Scale: 5 Pain Presence: Intermittent Pain Type: Contraction Pain Location: Abdomen Pain Relief Measures: Comfort Measures Pain Coping: Talking Through Contractions Datetime: 10/07/2023 10:19 Hygiene: Shower Datetime: 10/07/2023 08:29 Strip Reviewed by: Dr. Holbrook Datetime: 10/07/2023 04:37 Pain Goal: 5 Datetime: 10/06/2023 21:00 TEACHING Instructional Method: Verbal; Patient Instructed; Family/Support Person Instructed; Verbalized Unde rstanding Plan of Care: Plan of Care Discussed; Induction Unit Routine: [place] to Room; Call Evans; Bed; Visiting Policy; Waiting Areas; Phone/Cell Phone Use; Unit Personnel; Monitoring; Safety/Fall Risk Prevention; Diet/Nutrition Services; Bathroom Ara vileges; Medications Datetime: 10/06/2023 18:05 Stage of : Labor
== END 2023-10-11 17:30 | disposition home or self-care (01) | DRG 787 ==
LOC: WFO 17:45 → FBP 17:48 → WFO 19:15 → OBSVTOIN 10-07 18:28 → FBP 10-09 10:08
PROVIDERS: ADMIT Obstetrics & Gynecology; ATTEND Obstetrics & Gynecology
PROC: 3E033VJ Introduction of Other Hormone into Peripheral Vein, Percutaneous Approach (ICD-10-PCS; 2023-10-07)
PROC: 3E0DXGC Introduction of Other Therapeutic Substance into Mouth and Pharynx, External Approach (ICD-10-PCS; 2023-10-07)
PROC: 0U7C7ZZ Dilation of Cervix, Via Natural or Artificial Opening (ICD-10-PCS; 2023-10-08)
PROC: 10D00Z1 Extraction of Products of Conception, Low, Open Approach (ICD-10-PCS; principal; 2023-10-09 11:15)
DX: O24.420 Gestational diabetes mellitus in childbirth, diet controlled (principal); O98.52 Other viral diseases complicating childbirth; Z3A.39 39 weeks gestation of pregnancy; Z37.0 Single live birth; O61.0 Failed medical induction of labor; O61.1 Failed instrumental induction of labor; B00.9 Herpesviral infection, unspecified; O99.214 Obesity complicating childbirth; Z83.49 Family history of other endocrine, nutritional and metabolic diseases; Z86.59 Personal history of other mental and behavioral disorders; Z87.59 Personal history of other complications of pregnancy, childbirth and the puerperium; Z87.891 Personal history of nicotine dependence; Z87.898 Personal history of other specified conditions
CPT/HCPCS: 80053; 85025; 86850; 86900; 86901; A9270; J1650; J2274; J2372; J7120

== ENCOUNTER 2024-03-19 10:23 | Emergency (ER) | payer OTHER ==
[2024-03-19 10:48] VITALS: BP 114/73; O2SAT 99
--- NOTE | 2024-03-19 10:50 | ED Physician Documentation ---
History of Present Illness - Stated complaint Stated Complaint: FEMALE - Chief complaint Chief Complaint: General - History obtained from History obtained from: Patient - Additonal information Additional information: For about 4 days she has had a clogged milk duct on the right. She is breast- feeding a 5-month-old. There is some mild redness today. No fevers or chills. PD PAST MEDICAL HISTORY - Past Medical History Cardiovascular: None Respiratory: None Neuro: None Endocrine/Autoimmune: Other GI: None : None Musculoskeletal: None Derm: None - Past Surgical History Past Surgical History: Yes Ortho: Carpal Tunnel surgery /[place] [employer]: LEEP (Cervical surgery) - Present Medications Home Medications: Ambulatory Orders Medication Instructions Recorded Confirmed Pnv No.95/Ferrous Fum/Folic AC 1 each PO DAILY 10/06/23 10/08/23 [ Tablet] Acyclovir 800 mg PO BID 10/08/23 10/08/23 Ibuprofen [Motrin] 600 mg PO Q6H PRN #30 tab 10/11/23 Sertraline [Zoloft] 100 mg PO DAILY #30 tablet 10/11/23 cephALEXin [Keflex] 500 mg PO Q6H #28 cap 03/19/24 - Allergies Allergies/Adverse Reactions: Allergies Allergy/AdvReac Type Severity Reaction Status Date / Time No Known Drug Allergies Allergy Verified 03/19/24 10:34 - Social History Does the pt smoke?: No Smoking Status: Never smoker Does the pt drink ETOH?: No Does the pt have substance abuse?: No - Immunizations Immunizations are current?: Yes PD ED PE NORMAL - Vitals Vital signs reviewed: Yes - General General: Alert and oriented X 3, No acute distress - Derm Derm: Normal color, Warm and dry, Other (Exam done with Carlyn LOCKE. There is a firm area at about 2:00 without overlying cellulitis or obvious mastitis. Bedside ultrasound does demonstrate of fluid collection but no obvious abscess change.) - Neuro Neuro: Alert and oriented X 3, Normal speech Results - Vitals Vitals: Vital Signs - 24 hr 03/19/24 10:35 Temperature 36.7 C Heart Rate 84 Respiratory 16 Rate Blood Pressure 114/73 O2 Saturation 99 Oxygen O2 Source Room air PD Medical Decision Making - ED course ED course: She is a clogged milk duct. No signs of infection now but it has been 4 days so would want to prophylax with antibiotics. She is already doing correct conservative measures with heat, massage, pumping and feeding on that side. Departure - Departure Disposition: 01 Home, Self Care Clinical Impression: Occlusion of breast duct Condition: Good Record reviewed to determine appropriate education?: Yes Instructions: ED Breast Infec Follow-Up: Vladimir Muniz MD [Provider Admit Priv/Credential] - Prescriptions: cephALEXin [Keflex] 500 mg PO Q6H #28 cap Comments: I sent your prescriptions electronically to [facility] in [place]. Return if you worsen, develop increased pain, fevers. Follow-up with Dr. Muniz midweek if not improved.
== END 2024-03-19 11:08 | disposition home or self-care (01) ==
LOC: ED 10:23
DX: N64.89 Other specified disorders of breast (principal); Z79.899 Other long term (current) drug therapy
CPT/HCPCS: 99282; 99283